=== PATIENT | female | born 1990 | race Caucasian/White ===

== ENCOUNTER 2016-06-25 21:51 | Emergency (ER) | payer SELFPAY ==
--- NOTE | 2016-06-25 22:19 | UC ---
Dizzy HPI - History Of Current Complaint Chief Complaint: UCDizziness Stated Complaint: DIZZINESS,FACE TINGLING Time Seen by Provider: 06/25/16 22:12 Hx Obtained From: Patient Hx Last Menstrual Period: 06/13/16 ?: No Onset/Duration: Gradual Onset, Lasting Weeks - 1, Worse Since - last 2 day Timing: Intermittent Episode Lasting - up to hours at a time. Severity Initially: Mild Severity Currently: Moderate Character: Head Spinning, Lightheaded, Dizzy Aggravating Factor(s): Nothing Alleviating Factor(s): Nothing Associated Signs And Symptoms: Negative: Nausea, Vomiting, Diaphoresis, Tinnitus - Risk Factors Cardiac Risk Factors: Negative CVA Risk Factor: Negative - Allergies/Home Medications Allergies/Adverse Reactions: Allergies Allergy/AdvReac Type Severity Reaction Status Date / Time Penicillins [PCN] Allergy Unknown Verified 06/25/16 22:08 Reaction Details Home Medications: Home Medications Cholecalciferol TAB* [Vitamin D TAB*] 10,000 unit PO DAILY 06/25/16 [History Confirmed 06/25/16] Iodine (Kelp) [Kelp] 150 mcg PO DAILY 06/25/16 [History Confirmed 06/25/16] PMH/Surg Hx/FS Hx/Imm Hx Previously Healthy: No GI/ History Of: Reports: Gastroesophageal Reflux - Surgical History Surgical History: Yes Surgery Procedure, Year, and Place: T&A age 12 - Family History Known Family History: Positive: Cardiac Disease, Diabetes - Social History Occupation: Employed Full-time Lives: With Family Alcohol Use: Rare Substance Use Type: None Smoking Status (MU): Never Smoked Tobacco Review of Systems Constitutional: Fatigue ENT: Sore Throat, Nasal Discharge Neurological: Paresthesia Psychological: Anxious All Other Systems Reviewed And Are Negative: Yes Physical Exam Triage Information Reviewed: Yes Appearance: Well-Appearing, No Pain Distress, Obese Vital Signs: Initial Vital Signs Temp 98.6 F 06/25/16 21:58 Pulse 65 06/25/16 21:58 Resp 14 06/25/16 21:58 BP 113/88 06/25/16 21:58 Pulse Ox 96 06/25/16 21:58 Vital Signs Reviewed: Yes Eyes: Positive: Conjunctiva Inflamed - with crying ENT: Positive: Pharynx normal, Nasal congestion - with allergic, TMs normal Neck exam: Normal Respiratory: Positive: Lungs clear, Wheezing - expiratory wheezing with cough Cardiovascular Exam: Normal Musculoskeletal Exam: Normal Neurological Exam: Normal Psychological: Positive: Other: - Anxious Skin Exam: Normal Dizzy Course/Dx - Differential Dx/Diagnosis Differential Diagnosis/HQI/PQRI: Anxiety, Labyrinthitis, Vasovagal Reaction Provider Diagnoses: Allergic rhinitis. Mild intermittant asthma. Discharge - Discharge Plan Condition: Stable Disposition: HOME Prescriptions: Montelukast Sodium TAB* [Singulair 10 MG TAB*] 10 mg PO BEDTIME #30 tab Patient Education Materials: Allergic Rhinitis (ED), Montelukast (By mouth), Dizziness (ED), Lightheadedness (ED) Additional Instructions: [employer]: CHECK OUT AT [employer] Saline nasal wash helps with mucous, allergies and congestion. It can be used up to twice a day or only as needed. Use lukewarm tap water. It does not have to be sterilized or distilled water. Do 1/3 on each side and snort out of both nostrils. Repeat the process with 1/6 of the bottle on each side with snorting in between to finish the solution in the bottle
[2016-06-25 22:54] VITALS: BP 113/88
== END 2016-06-25 22:57 | disposition home or self-care (01) ==
LOC: UCCORT 21:51
DX: J45.20 Mild intermittent asthma, uncomplicated (principal); Z88.0 Allergy status to penicillin
CPT/HCPCS: 99202; G0463

== ENCOUNTER 2017-03-29 17:38 | Emergency (ER) | payer BC ==
[2017-03-29 18:43] VITALS: BP 141/79
--- NOTE | 2017-03-29 18:57 | UC ---
Throat Pain/Nasal Mukul HPI - HPI Summary HPI Summary: 27 year old with right sided mouth pain, sinus pain for over 3-4 weeks. Has been to 3 dentists. to see ENT in 4 days. No fever. Has had PND and cough as well. Concern for sinus infection - History of Current Complaint Chief Complaint: UCEar Stated Complaint: RIGHT EAR COMPLAINT SORE THROAT CONGESTION Time Seen by Provider: 03/29/17 18:47 Hx Obtained From: Patient Hx Last Menstrual Period: 03/16/17 Onset/Duration: Gradual Onset Cough: Productive - Allergies/Home Medications Allergies/Adverse Reactions: Allergies Allergy/AdvReac Type Severity Reaction Status Date / Time Penicillins [PCN] Allergy Unknown Verified 03/29/17 18:43 Reaction Details Home Medications: Home Medications Omeprazole CAP* [Prilosec CAP* 20 MG] 20 mg PO DAILY PRN 03/29/17 [History Confirmed 03/29/17] PMH/Surg Hx/FS Hx/Imm Hx Previously Healthy: Yes - Surgical History Surgical History: Yes Surgery Procedure, Year, and Place: T&A age 12 - Family History Known Family History: Positive: Cardiac Disease, Diabetes - Social History Occupation: Employed Full-time Lives: With Family Alcohol Use: Rare Substance Use Type: None Smoking Status (MU): Never Smoked Tobacco - Immunization History Most Recent Influenza Vaccination: none Review of Systems ENT: Sore Throat, Ear Ache, Nasal Discharge, Sinus Congestion, Sinus Pain/ Tenderness Is Patient Immunocompromised?: No All Other Systems Reviewed And Are Negative: Yes Physical Exam Triage Information Reviewed: Yes Appearance: Well-Appearing, No Pain Distress, Well-Nourished Vital Signs: Initial Vital Signs Temp 98.0 F 03/29/17 18:37 Pulse 62 03/29/17 18:37 Resp 16 03/29/17 18:37 BP 141/79 03/29/17 18:37 Pulse Ox 100 03/29/17 18:37 Vital Signs Reviewed: Yes Eye Exam: Normal ENT Exam: Normal ENT: Positive: Nasal congestion, TM dull - right, Other: - right maxillary tenderness to palpation. Negative: Tonsillar swelling, Tonsillar exudate Dental Exam: Normal Neck exam: Normal Neck: Positive: 1 Respiratory Exam: Normal Cardiovascular Exam: Normal Musculoskeletal Exam: Normal Neurological Exam: Normal Psychological Exam: Normal Skin Exam: Normal Throat Pain/Nasal Course/Dx - Course Course Of Treatment: right maxillary sinus tenderness with tooth pain for 3-4 weeks -- start cefdinir and keep ENT appt in 4 day - Differential Dx/Diagnosis Differential Diagnosis/HQI/PQRI: Pharyngitis, Sinusitis, Tonsillitis, URI Provider Diagnoses: Sinusitis Discharge - Discharge Plan Condition: Good Disposition: HOME Prescriptions: Cefdinir [Cefdinir 300 MG CAP] 300 mg PO BID #20 cap Patient Education Materials: Sinusitis (ED) Referrals: No Primary Care Phys,NOPCP [Primary Care Provider] - 4 Days (Keep your ENT appt )
== END 2017-03-29 19:10 | disposition home or self-care (01) ==
LOC: UCCORT 17:38
DX: J32.0 Chronic maxillary sinusitis (principal); Z88.0 Allergy status to penicillin
CPT/HCPCS: 99212; G0463

== ENCOUNTER 2021-01-31 18:34 | Inpatient (IN) ==
[2021-01-31] MEDS ORDERED: Lactated Ringers 1000 ml BAG 1,000 ML IV ONE (18:43)
[2021-01-31] MEDS ORDERED: Buffered Lidocaine 1% SYRIN 1 ml INTRADERM ONE (18:43)
[2021-01-31] MEDS ORDERED: Dinoprostone 10 MG VAG.SUPP VAGINAL ONE (18:46)
[2021-01-31] MEDS ORDERED: Lactated Ringers 1000 ml BAG 1,000 ML IV SCH (19:00)
[2021-02-01 11:56] LABS: Urine Benzodiazepine Screen None Detected (None Detect); Urine Cannabinoids Screen None Detected (None Detect); Urine Opiates Screen None Detected (None Detect)
[2021-02-01] MEDS ORDERED: Oxytocin in LR 20 UNITS/1,000 ML BAG IVPB ONE (22:00)
[2021-02-01] MEDS ORDERED: Nalbuphine 10 MG/ML 1 ML VIAL IV PRN (22:09)
[2021-02-01] MEDS ORDERED: Promethazine INJ(RESTRICTED) 25 MG/ML 1 ml VIAL IV PRN (22:10)
[2021-02-01] MEDS ORDERED: Oxytocin in LR 20 UNITS/1,000 ML BAG IVPB SCH (23:00)
[2021-02-02 00:13] LABS: Hematocrit 33 % (35-47); Hemoglobin 10.4 g/dL (12.0-16.0); Mean Corpuscular HGB Conc 32 g/dL (31-36); Mean Corpuscular Hemoglobin 21 pg (27-31); Mean Corpuscular Volume 68 fL (80-97); Red Blood Count 4.88 10^6 /uL (3.70-4.87); Red Cell Distribution Width 18 % (10-15); White Blood Count 13.7 10^3/uL (3.5-10.8)
[2021-02-02 01:16] LABS: ABS Eosinophils 0.1 10^3/ul (0-0.6); ABS Lymphocytes 2.9 10^3/ul (1.0-4.8); ABS Monocytes 1.2 10^3/ul (0-0.8); ABS Neutrophils 9.5 10^3/ul (1.5-7.7); ABS Nucleated RBC 0.1 10^3/ul; Eosinophil % 0.6 %; Nucleated Red Blood Cells % 0.6; Platelet Count 139 10^3/uL (150-450)
[2021-02-02] MEDS ORDERED: OBEPIDURAL 250 ML EPIDURAL ONE (02:45)
[2021-02-02] MEDS ORDERED: fentaNYL 100 mcg/2 ml 50 MCG/ML VIAL ONE ×2 (03:47→10:32)
[2021-02-02 04:53] LABS: Urine Appearance Clear; Urine Bilirubin Negative (Negative); Urine Blood 1+ (Negative); Urine Color Straw; Urine Glucose Negative (Negative); Urine Ketones Negative (Negative); Urine Nitrite Negative (Negative); Urine Protein Negative (Negative); Urine Specific Gravity 1.003 (1.002-1.030); Urine Urobilinogen Negative (Negative)
[2021-02-02 04:56] LABS: Urine Bacteria Absent (Absent); Urine Red Blood Cell Absent (Absent); Urine White Blood Cell Absent (Absent)
[2021-02-02] MEDS ORDERED: Phenylephrine 40 mcg/mL 10mL (400mcg) SYRINGE IV PUSH PRN ×2 (05:03)
[2021-02-02] MEDS ORDERED: Lactated Ringers 1000 ml BAG 1,000 ML IV ONE (05:03)
[2021-02-02] MEDS ORDERED: Lactated Ringers 1000 ml BAG 500 ML IV PRN ×2 (05:03)
[2021-02-02] MEDS ORDERED: Sodium Citrate/Citric Acid LIQ 15 ML UDC PO PRN (05:03)
[2021-02-02] MEDS ORDERED: OBEPIDURAL 250 ML EPIDURAL SCH (06:00)
[2021-02-02] MEDS ORDERED: Lactated Ringers 1000 ml BAG 1,000 ML IV SCH ×2 (06:00→12:00)
[2021-02-02] MEDS ORDERED: ceFOXitin 2 GM IVPREMIX 2 GM/50 ML BAG ONE (09:30)
[2021-02-02] MEDS ORDERED: ceFOXitin 2 GM IVPREMIX 2 GM/50 ML BAG IVPB ONE (09:33)
[2021-02-02] MEDS ORDERED: Lidocaine 2% PF 10 ML AMP ONE (09:42)
[2021-02-02] MEDS ORDERED: Propofol 10 MG/ML 20 ML BTL ONE (10:10)
[2021-02-02] MEDS ORDERED: Lidocaine 1% VIAL 10 MG/ML VIAL ONE (10:11)
[2021-02-02] MEDS ORDERED: Oxytocin 10 UNITS/ML 1 ML VIAL ONE ×2 (10:18→11:38)
[2021-02-02] MEDS ORDERED: Dexamethasone IV 4 MG/ML VIAL 1 ml VIAL ONE (10:34)
[2021-02-02] MEDS ORDERED: Ondansetron 4 mg VIAL 2 MG/ML 2 ml VIAL ONE (10:34)
[2021-02-02] MEDS ORDERED: Bupivacaine 0.5% SDV PF 30ML VIAL ONE (10:53)
[2021-02-02] MEDS ORDERED: Morphine 10 MG/ML VIAL (1 ml) ONE (10:54)
[2021-02-02] MEDS ORDERED: Acetaminophen IV 1 GM/100ML 100 ML IV ONE (11:21)
[2021-02-02] MEDS ORDERED: Glycerin ADULT 2.4 gm SUPP PR PRN (11:44)
[2021-02-02] MEDS ORDERED: Dibucaine 1% OINT 28.35 GM TUBE PR PRN (11:44)
[2021-02-02] MEDS ORDERED: Tetan/Diph/Pertus SYR(Tdap) 0.5 ML SYR(BOOSTRIX) use SYR contains LATEX IM ONE (11:44)
[2021-02-02] MEDS ORDERED: Witch Hazel PAD JAR TOPICAL PRN (11:44)
[2021-02-02] MEDS ORDERED: Oxytocin in LR 20 UNITS/1,000 ML BAG IVPB SCH (12:00)
[2021-02-03 08:05] LABS: Hematocrit 26 % (35-47); Hemoglobin 8.3 g/dL (12.0-16.0); Mean Corpuscular HGB Conc 32 g/dL (31-36); Mean Corpuscular Hemoglobin 22 pg (27-31); Mean Corpuscular Volume 67 fL (80-97); Red Cell Distribution Width 18 % (10-15); White Blood Count 16.2 10^3/uL (3.5-10.8)
[2021-02-03 08:33] LABS: ABS Basophils 0.1 10^3/ul (0-0.2); ABS Eosinophils 0.1 10^3/ul (0-0.6); ABS Lymphocytes 2.5 10^3/ul (1.0-4.8); ABS Monocytes 1.5 10^3/ul (0-0.8); Eosinophil % 0.4 %; Lymphocyte % 15.4 %; Mean Platelet Volume 12.1 fL (7.4-10.4); Nucleated Red Blood Cells % 0.2; Platelet Count 125 10^3/uL (150-450)
[2021-02-05 11:31] VITALS: BP 132/83
== END 2021-02-05 11:50 | disposition home or self-care (01) | DRG 540 ==
LOC: MCHOBOUT 18:34 → MCHOB 19:04
PROVIDERS: ADMIT Obstetrics & Gynecology; ATTEND Obstetrics & Gynecology